=== PATIENT | male | born 1960 ===

== ENCOUNTER 2018-11-06 10:59 | Observation (INO) | payer OTHER ==
--- NOTE | 2018-11-06 11:26 | ED ---
Syncope/Near Syncope - HPI Summary HPI Summary: The patient is a 58 y/o M presenting to [facility] arriving by ambulance from correctional facility with a chief complaint of sudden onset syncope this morning. He reports that he was standing outside smoking a cigarette when he suddenly felt lightheaded, so he sat down on a nearby bench. He next woke up on the ground and was unaware that he fainted. At the facility, he was administered 500 ccs of Ns because he was hypotensive. Prior to the event, he denies any signs of headache, SOB, or CP. He is also not feeling SOB or CP currently, but he does have a mild headache. He notes that if he hasn't smoked in a few days, he sometimes gets dizzy while smoking. Hx of HTN, HLD, and borderline DM. HTN and HLD are controlled with medications. No hx of ID, CVA, or TIA. FHx of DM and HTN. No EtOH, former substance use with occasional marijuana use. - History Of Current Complaint Chief Complaint: EDSyncope Time Seen by Provider: 11/06/18 11:04 Hx Obtained From: Patient Onset/Duration: Sudden Onset, Lasting Minutes, Resolved Associated Head Trauma: No Aggravating Factor(s): Nothing Alleviating Factor(s): Spontaneous Resolution Associated Signs And Symptoms: Headache - mild, Lightheadedness, Other - NEGATIVE: CP, SOB - Allergies/Home Medications Allergies/Adverse Reactions: Allergies Allergy/AdvReac Type Severity Reaction Status Date / Time No Known Allergies Allergy Verified 11/06/18 11:06 Home Medications: Home Medications Aspirin EC TAB* [Ecotrin EC Low Dose 81 MG*] 81 mg PO DAILY 11/06/18 [History Confirmed 11/06/18] Atorvastatin* [Lipitor*] 10 mg PO DAILY 11/06/18 [History Confirmed 11/06/18] Hydrochlorothiazide TAB* [Hydrodiuril TAB*] 12.5 mg PO DAILY 11/06/18 [History Confirmed 11/06/18] Lisinopril TAB* [Prinivil TAB*] 20 mg PO DAILY 11/06/18 [History Confirmed 11/06] Tamsulosin CAP* [Flomax CAP*] 0.8 mg PO BEDTIME 11/06/18 [History Confirmed ] metFORMIN* [Glucophage 500 MG TAB *] 500 mg PO BID 11/06/18 [History Confirmed 11/06/18] PMH/Surg Hx/FS Hx/Imm Hx Endocrine/Hematology History: Reports: Hx Diabetes - borderline Cardiovascular History: Reports: Hx Hypercholesterolemia, Hx Hypertension - Surgical History Surgery Procedure, Year, and Place: none Infectious Disease History: No Infectious Disease History: Denies: Traveled Outside the [place] in Last 30 Days - Family History Known Family History: Positive: Hypertension, Diabetes - Social History Alcohol Use: None Hx Substance Use: Yes Substance Use Type: Reports: Marijuana Substance Use Comment - Amount & Last Used: states he last used 27 years ago but used marijuana occasionally Hx Tobacco Use: Yes Smoking Status (MU): Light Every Day Tobacco Smoker Type: Cigarettes Do You Chew or Dip Tobacco: No Have You Chewed or Dipped Tobacco in the LAST YEAR: No Have You Smoked in the Last Year: No Review of Systems Negative: Chest Pain Negative: Shortness Of Breath Neurological: Other - lightheaded Positive: Headache - mild, Syncope All Other Systems Reviewed And Are Negative: Yes Physical Exam - Summary Physical Exam Summary: VITAL SIGNS: Reviewed. GENERAL: Patient is a well-developed and nourished male who is lying comfortable in the stretcher. Patient is not in any acute respiratory distress. HEAD AND FACE: No signs of trauma. No ecchymosis, hematomas or skull depressions. No sinus tenderness. EYES: PERRLA, EOMI x 2, No injected conjunctiva, no nystagmus. No photophobia. EARS: Hearing grossly intact. Ear canals and tympanic membranes are within normal limits. MOUTH: Oropharynx within normal limits. NECK: Supple, trachea is midline, no adenopathy, no JVD, no carotid bruit, no c- spine tenderness, neck with full ROM. No meningeal signs, no Kernig's or brudzinskis signs. CHEST: Symmetric, no tenderness at palpation LUNGS: Clear to auscultation bilaterally. No wheezing or crackles. CVS: Regular rate and rhythm, S1 and S2 present, no murmurs or gallops appreciated. ABDOMEN: Soft, non-tender. No signs of distention. No rebound no guarding, and no masses palpated. Bowel sounds are normal. EXTREMITIES: FROM in all major joints, no edema, no cyanosis or clubbing. NEURO: Alert and oriented x 3. No acute neurological deficits. Speech is normal and follows commands. SKIN: Dry and warm. GCS: 15 Triage Information Reviewed: Yes Vital Signs On Initial Exam: Initial Vitals Temp Pulse Resp BP Pulse Ox 99.0 F 80 18 132/83 97 11/06/18 11:03 11/06/18 11:03 11/06/18 11:03 11/06/18 11:03 11/06/18 11:03 Vital Signs Reviewed: Yes - Libby Coma Scale Best Eye Response: 4 - Spontaneous Best Motor Response: 6 - Obeys Commands Best Verbal Response: 5 - Oriented Coma Scale Total: 15 Diagnostics - Vital Signs Vital Signs Temp Pulse Resp BP Pulse Ox 11/06/18 11:03 99.0 F 80 18 132/83 97 - Laboratory Result Diagrams: 11/06/18 11:51 11/06/18 11:48 Lab Statement: Any lab studies that have been ordered have been reviewed, and results considered in the medical decision making process. - Radiology CXR Radiology Interpretation Completed By: Radiologist Summary of Radiographic Findings: No evidence for acute intrathoracic disease. ED physician has reviewed this report. - CT Brain CT CT Interpretation Completed By: Radiologist Summary of CT Findings: 1. No evidence for acute intracranial abnormality. 2. Small area of decreased density adjacent to the right thalamus suggestive of an old lacunar infarct or prominent perivascular space. ED physician has reviewed this report. - EKG 1110 Cardiac Rate: NL - 78 BPM EKG Rhythm: Sinus Rhythm Summary of EKG Findings: T-wave inversions in V5, no ST elevations Re-Evaluation - Re-Evaluation First Eval Re-Evaluation Time: 14:10 Change: Unchanged Comment: I discussed findings and need for admission with the patient. Course/Dx Assessment/Plan: The patient is a 58 y/o M presenting to [facility] arriving by ambulance from correctional facility with a chief complaint of sudden onset syncope this morning. He reports that he was standing outside smoking a cigarette when he suddenly felt lightheaded, so he sat down on a nearby bench. He next woke up on the ground and was unaware that he fainted. At the facility, he was administered 500 ccs of Ns because he was hypotensive. Prior to the event , he denies any signs of headache, SOB, or CP. He is also not feeling SOB or CP currently, but he does have a mild headache. He notes that if he hasn't smoked in a few days, he sometimes gets dizzy while smoking. Hx of HTN, HLD, and borderline DM. HTN and HLD are controlled with medications. No hx of ID, CVA, or TIA. FHx of DM and HTN. No EtOH, former substance use with occasional marijuana use. Initially the ED the patient was placed on a interactive media marketing director. Blood work, EKG, chest x-ray, and head CT was ordered. Chest x-ray impression: No evidence for acute disease. Head CT impression: No evidence for acute intracranial abnormality. Small area of decreased density adjacent to the right , suggestive of an old lacunar infarct from in the vascular space. Blood work without any significant abnormality except for slight anemia, glucose of 136, and troponin of 0.00. Urinalysis is negative for UTI, and urine toxicology is negative. I discuss my physical exam, findings, and test results with Dr. Soliz from the hospitalist services, and he agrees to admit the patient to his services. Patient is hemodynamically stable alert and oriented x3. - Diagnoses Differential Diagnosis/HQI/PQRI: Positive: Cerebral Vascular Accident, Coronary Artery Disease, Dysrhythmia, Transient Ischemic Attack, Vasovagal Episode Provider Diagnoses: Syncope - Physician Notifications Discussed Care of Patient With: Yao Soliz - hospitalist Time Discussed With Above Provider: 01:35 Instructed by Provider To: Other - I spoke with Dr. Soliz who accepts the patient for admission for syncope. Discharge - Sign-Out/Discharge Documenting (check all that apply): Patient Departure - Patient is admitted for further workup by Dr. Soliz. Patient Received Moderate/Deep Sedation with Procedure: No - Discharge Plan Condition: Stable Disposition: ADMITTED TO [facility] - Billing Disposition and Condition Condition: STABLE Disposition: Admitted to [facility] - Attestation Statements Document Initiated by Marandaibe: Yes Documenting Scribe: Keslea Blood Provider For Whom Marandaibe is Documenting (Include Credential): Dr. Sandro Jimenez MD Scribe Attestation: Kelsea Rodríguez scribed for Dr. Sandro Jimenez MD on 11/06/18 at 2200. Scribe Documentation Reviewed: Yes Provider Attestation: The documentation as recorded by the Kelsea jefferson accurately reflects the service I personally performed and the decisions made by me, Dr. Sandro Jimenez MD Status of Scribe Document: Viewed
[2018-11-06 11:49] LABS: Urine Appearance Clear; Urine Bilirubin Negative (Negative); Urine Blood Negative (Negative); Urine Color Yellow; Urine Glucose Negative (Negative); Urine Ketones Negative (Negative); Urine Nitrite Negative (Negative); Urine Protein Negative (Negative); Urine Specific Gravity 1.013 (1.010-1.030); Urine Urobilinogen Negative (Negative)
[2018-11-06 12:10] LABS: Urine Benzodiazepine Screen None Detected (None Detect); Urine Opiates Screen None Detected (None Detect)
[2018-11-06 12:25] LABS: Hematocrit 39 % (42-52); Hemoglobin 12.4 g/dL (14.0-18.0); Mean Corpuscular HGB Conc 32 g/dL (31-36); Mean Corpuscular Hemoglobin 23 pg (27-31); Mean Corpuscular Volume 72 fL (80-94); Mean Platelet Volume 9.7 fL (7.4-10.4); Platelet Count 137 10^3/uL (150-450); Red Blood Count 5.39 10^6 /uL (4.18-5.48); Red Cell Distribution Width 18 % (10.5-15); White Blood Count 9.6 10^3/uL (3.5-10.8)
[2018-11-06 12:34] LABS: ALT 33 U/L (7-52); AST 23 U/L (13-39); Albumin 4.1 g/dL (3.2-5.2); Albumin/Globulin Ratio 1.4 (1-3); Alcohol < 10 mg/dL (<10); Alkaline Phosphatase 74 U/L (34-104); Anion Gap 5 mmol/L (2-11); BUN/Creatinine Ratio 17.4 (8-20); Blood Urea Nitrogen 19 mg/dL (6-24); CO2 Carbon Dioxide 30 mmol/L (22-32); Calcium 9.5 mg/dL (8.6-10.3); Chloride 105 mmol/L (101-111); Creatine Kinase 144 U/L (10-223); EGFR African American 83.5 (>60); Globulin 2.9 g/dL (2-4); Glucose 136 mg/dL (70-100); Magnesium 1.9 mg/dL (1.9-2.7); Potassium 4.1 mmol/L (3.5-5.0); Sodium 140 mmol/L (135-145)
[2018-11-06 12:48] LABS: TSH (Thyroid Stimulating Horm) 1.83 mcIU/mL (0.34-5.60)
[2018-11-06 13:48] LABS: ABS Eosinophils 0.1 10^3/ul (0-0.6); ABS Lymphocytes 0.5 10^3/ul (1.0-4.8); ABS Monocytes 0.4 10^3/ul (0-0.8); ABS Neutrophils 8.6 10^3/ul (1.5-7.7); Eosinophil % 0.9 %
[2018-11-06 13:49] LABS: Microcytosis 2+
[2018-11-06] MEDS ORDERED: Acetaminophen TAB* 325 MG PO PRN (14:44)
[2018-11-06] MEDS ORDERED: Al Hydrox/Mg Hydrox/Simet LIQ* 30 ML UDC PO PRN (14:44)
[2018-11-06] MEDS ORDERED: Dextrose 50% Syringe 50 ML* 25 GM/50 ML SYRINGE IV PUSH PRN (14:48)
[2018-11-06] MEDS: Insulin LISPRO* 1 UNITS UNIT SUBCUT SCH (17:11)
--- NOTE | 2018-11-06 17:45 | ECHO ---
*[facility]* [place] [address] Fax #: [phone] Transthoracic Echocardiogram Patient: Nick, Height: 72 in / [id number] 182.9 cm : 1960 Weight: 174.6 lb Study Date: 11/06/2018 / 79.4 kg Age: 58 BP: 129 / 72 Gender: M BMI/BSA: 23.7 HR: 66 bpm kg/m^2 / 2.01 m^2 *Laundry Or Dry Cleaners Counter Clerk: * Stefany Mitchell [facility] *Referring Physician: * Nurys Gonzalez *Reading Physician: * Arley Lopez MD Indications: Syncope. History: Risk factors: Current tobacco use. Former substance abuse. Hypertension. Hyperlipidemia. Conclusions Summary: 1. Left ventricle: There is mild concentric hypertrophy. Systolic function is at the lower limits of normal. The estimated ejection fraction is 50-55%. 2. Left atrium: The atrium is mildly dilated. 3. Mitral valve: There is trace regurgitation. 4. Aortic valve: There is trace regurgitation. 5. Aortic root: The aortic root is upper normal in size. 6. No previous echocardiogram available. Study data: Transthoracic echocardiogram. Procedure: Transthoracic echocardiography was performed. Image quality was good. Complete 2D, spectral Doppler, and color flow Doppler. Location: Emergency department. Patient status: Inpatient. Patient room number: ED-18. Findings Left ventricle: The cavity size is normal. There is mild concentric hypertrophy. Systolic function is at the lower limits of normal. The estimated ejection fraction is 50-55%. Wall motion is normal; there are no regional wall motion abnormalities. Doppler parameters are consistent with abnormal left ventricular relaxation (grade 1 diastolic dysfunction). Right ventricle: The cavity size is normal. Systolic function is normal. Left atrium: The atrium is mildly dilated. Right atrium: The atrium is normal in size. Mitral valve: The leaflets are mildly thickened. There is no evidence of stenosis. There is trace regurgitation. Aortic valve: The valve is trileaflet. The leaflets are mildly thickened. There is no evidence of stenosis. There is trace regurgitation. Tricuspid valve: The leaflets are normal thickness. There is no evidence of stenosis. There is physiologic regurgitation. Pulmonic valve: The leaflets are normal thickness. There is no evidence of stenosis. There is trace regurgitation. Aorta: Aortic root: The aortic root is upper normal in size. Ascending aorta: The ascending aorta is upper normal in size. Aortic arch: The aortic arch is appears normal. Pericardium: There is no pericardial effusion. Pulmonary arteries: The main pulmonary artery is normal-sized. Systolic pressure can not be accurately estimated. Systemic veins: Inferior vena cava: The vessel is normal in size. The respirophasic diameter changes are in the normal range (>= 50%). Measurements Left ventricle Value Ref Right atrium continued Value Ref IGOR, LAX 5.3 cm 4.2 - 5.8 SI dim, ES, A4C 4.6 cm 3.4 - 5.3 ESD, LAX 3.8 cm 2.5 - 4.0 Estimated RAP 3 mm Hg --------- FS, LAX 29 % 43 PW, ED, LAX (H) 1.2 cm 0.6 - 1.0 Aortic valve Value Ref FS 28 % 43 Emmie diam, ED 2.1 cm --------- PW, ED (H) 1.2 cm 0.6 - 1.0 Peak v, S 1.26 m/sec --------- E', lat emmie, TDI (L) 4.1 cm/sec >=10.0 VTI, S 22.6 cm -- ------- E/e', lat emmie, 15 Mean grad, S 4.0 mm Hg ----- ---- TDI Peak grad, S 6.0 mm Hg --------- E', med emmie, TDI (L) 5.0 cm/sec >=7.0 LVOT/AV, VTI ratio 0.8 -- ------- E/e', med emmie, 13 TDI Mitral valve Value Ref E', avg, TDI 4.6 cm/sec Peak E 0.63 m/sec ----- ---- E/e', avg, TDI 14 <=14 Peak A 0.66 m/sec -- ------- Decel time 155 ms --------- LVOT Value Ref Peak E/A ratio 1 --------- Peak destin, S 0.94 m/sec VTI, S 18.0 cm Pulmonic valve Value Ref Mean grad, S 2 mm Hg Peak v, S 0.81 m/sec --------- Peak grad, S 3.0 mm Hg --------- Ventricular septum Value Ref IVS, ED (H) 1.1 cm 0.6 - 1.0 Aortic root Value Ref Root diam 3.7 cm <4.1 Right ventricle Value Ref IGOR, LAX 3.7 cm Ascending aorta Value Ref IGOR minor ax, (H) 3.9 cm 1.9 - 3.5 AAo AP diam, S 3.6 cm --------- A4C mid Aortic arch Value Ref Left atrium Value Ref Arch diam 2.4 cm --------- AP dim, ES 3.90 cm 3.00 - 4.00 Decending aorta Value Ref ML dim, A4C 4.1 cm Fred peak destin 0.91 m/sec --------- SI dim, A4C 4.5 cm Vol/bsa, ES, 1-p 27 ml/m^2 12 - 37 Inferior vena cava Value Ref A4C Diam 1.8 cm --------- Vol/bsa, ES, A/L (H) 37 ml/m^2 16 - 34 Right atrium Value Ref SI dim, ES 4.6 cm 3.4 - 5.3 ML dim, ES, A4C (H) 4.7 cm 2.6 - 4.4 Legend: (L) and (H) marilin values outside specified reference range. Prepared and electronically signed by Arley Lopez MD 11/06/2018 17:45
--- NOTE | 2018-11-06 19:16 | HP ---
AMENDED REPORT NOW INCLUDES DESIGNATED COSIGNER CC: [facility] * HISTORY AND PHYSICAL: DATE OF ADMISSION: 11/06/18 PROVIDER: Nursy Gonzalez NP ATTENDING PHYSICIAN WHILE IN THE HOSPITAL: Dr. Yao Soliz * (dictated by Nurys Gonzalez NP). PRIMARY CARE PROVIDER: [facility]. CHIEF COMPLAINT: Syncope. HISTORY OF PRESENT ILLNESS: Mr. Romero is a 58-year-old male with a past medical history significant for borderline diabetes, hypertension, hyperlipidemia, who was brought to the emergency room by EMS after a syncopal episode at the [facility]. The patient reports that he was smoking a cigarette, which he reports he has not smoked cigarettes in several months. He reports that he felt lightheaded and next thing he remembered was looking up at the [place]. The patient reports that he did hit the back of his head. He denies any palpitations or chest pain prior to his syncopal episode. This was witnessed by a school services officer, who reports that his loss of consciousness was 1 to 2 seconds. After the episode, the patient denied any dizziness or chest pain. The school services officer reports that the patient immediately tried to sit up within seconds of the episode. The patient does currently complain of headache at this time. Denies any fevers or unintended weight loss. Denies any chest pain or edema, cough, hemoptysis or shortness of breath. No nausea, vomiting, diarrhea, or abdominal pain. Denies any gross hematuria, dysuria, focal weakness, or sensory loss. Denies any visual complaints, dysphagia, arthralgias, myalgias, rashes, lesions, or open sores. He did report lightheadedness prior to his syncopal episode. Due to his syncope , we were asked to see and evaluate the patient for admission. PAST MEDICAL HISTORY: Borderline diabetes type 2, hypertension, hyperlipidemia. PAST SURGICAL HISTORY: 1. Lumbar spine surgery. 2. Tonsillectomy. 3. Hernia repair. HOME MEDICATIONS: Include: 1. Tamsulosin 0.8 mg p.o. at bedtime. 2. Lisinopril 20 mg p.o. daily. 3. Hydrochlorothiazide 12.5 mg p.o. daily. 4. Atorvastatin 10 mg p.o. daily. 5. Metformin 500 mg p.o. b.i.d. 6. Enteric-coated aspirin 81 mg p.o. daily. ALLERGIES: No known drug allergies. FAMILY HISTORY: Father with a history of hypertension. Father with diabetes. Father with pancreatic cancer, has since . SOCIAL HISTORY: The patient reports that he smokes quarter pack a day on and off for the past 15 years, but reports he has not smoked in the past 4 to 5 months until today. Denies any alcohol use x90 days. He does report occasional marijuana use, but not in the past 90 days. He is . Surrogate decision maker in the event he is unable to make his own decisions would to be call his correctional facility at [place]. He is a full code. REVIEW OF SYSTEMS: An 11-point review of systems was completed. All pertinent positives were mentioned in the HPI. Otherwise were negative. PHYSICAL EXAMINATION GENERAL: At this time, Mr. Romero is alert and oriented, resting on the stretcher in the emergency room. He is in no acute distress. VITAL SIGNS: Blood pressure 130/80, heart rate is 79, respirations 16, O2 saturation was 98%, temperature was 98.5. HEENT: Head is atraumatic, normocephalic. He has no scalp hematoma. Eyes: EOMs are intact. Sclerae anicteric and not pale. Pupils are 2 mm, equal and reactive to light. NECK: Supple. No C-spine tenderness with palpation. LUNGS: Clear to auscultation bilaterally. No wheezes, rales, or rhonchi. CARDIAC: S1, S2. Regular rate and rhythm. No murmurs, rubs, or gallops. ABDOMEN: Soft and nontender. Bowel sounds are present x4. MUSCULOSKELETAL: He is able to move all 4 extremities with 5/5 strength. Skin is intact. NEUROLOGIC: The patient is alert and oriented x3. Speech is clear. Thought process is intact. Cranial nerves II through XII are grossly intact. Sensation is intact to all 4 extremities. SKIN: Intact. DIAGNOSTIC STUDIES/LAB DATA: WBCs are 9.6, RBCs 5.39, hemoglobin 12.4, hematocrit 39, platelet count is 137. APTT was 34.4. Sodium 140, potassium 4.1 , chloride 105, carbon dioxide is 30, anion gap 5, BUN 19, creatinine 1.09, glucose is 136, lactic acid 1.3, calcium 9.5, magnesium 1.9. Total bili was 0.40, ASTs were 23, ALTs were 33, alkaline phosphatase was 74. Total creatine kinase 144. Troponin was 0.00, second troponin is currently pending. BNP was 24. TSH was 1.83. Urine was within normal limits. Toxicology: Alcohol was less than 10 and urine tox was within normal limits. No drugs were detected. He had a CT of the brain, radiologist's impression: No evidence of acute intracranial abnormality. Small area of decreased density adjacent to the right thalamus suggestive of old lacunar infarct or prominent perivascular space. There is no evidence of hemorrhage. He had a chest x-ray, radiologist's impression: No evidence of acute intrathoracic disease. He had an electrocardiogram, which showed sinus rhythm at a rate of 78. He does have inverted T-wave in V5. There is no old EKG to compare. ASSESSMENT AND PLAN: Mr. Romero is a 58-year-old male with a past medical history significant for type 2 diabetes, hypertension, hyperlipidemia, who presented to the emergency room via EMS after a syncopal episode at [facility]. He will be admitted under observation for: 1. Syncope. The patient had a syncopal episode after smoking a cigarette. I suspect this could be related to vasovagal syncope. He will be monitored on telemetry to rule out underlying arrhythmia. He will have a transthoracic echocardiogram to rule out any underlying cardiac structural abnormality. We will do neuro checks q.4 hours. We will get orthostatic vital signs as well. 2. Hypertension. He will continue on hydrochlorothiazide and lisinopril. 3. Hyperlipidemia. He will continue on Lipitor. 4. Diabetes. I will hold his metformin and place him on lispro sliding scale. 5. FEN: He can have a heart-healthy, caffeine okay diet. 6. Code status: He is a full code. 7. DVT prophylaxis: I will place him on SCDs as the patient had a recent syncopal episode with head injury. TIME SPENT: Time spent on this admission was approximately 60 minutes, greater than half that time was spent at the bedside reviewing events leading thus far to his hospitalization, performing physical exam, and reviewing my plan of care. I have discussed this with my attending, Dr. Yao Soliz; he is in agreement with my plan. NURYS GONZALEZ, DISPUTE SPECIALIST [id number]/[facility] #: [id number] [facility]
[2018-11-06] MEDS ORDERED: Tamsulosin CAP* 0.4 MG PO SCH (21:00)
[2018-11-07] MEDS: Insulin LISPRO* 1 UNITS UNIT SUBCUT SCH (07:26)
[2018-11-07 07:44] LABS: % Iron Saturation 21 % (15-55); Iron 59 ug/dL (50-212); Total Iron Binding Capacity 287 mcg/dL (250-450); Transferrin 205 mg/dL (203-362)
[2018-11-07 08:04] LABS: Ferritin 119.8 ng/mL (24-336)
[2018-11-07 08:42] VITALS: BP 143/83
[2018-11-07] MEDS ORDERED: Aspirin EC TAB* 81 MG TAB.EC PO SCH (09:00)
[2018-11-07] MEDS ORDERED: Hydrochlorothiazide TAB* 25 MG PO SCH (09:00)
[2018-11-07] MEDS ORDERED: Lisinopril TAB* 10 MG PO SCH (09:00)
[2018-11-07] MEDS ORDERED: Atorvastatin* 10 MG TAB PO SCH (09:00)
[2018-11-07] MEDS ORDERED: metFORMIN* 500 MG TAB PO SCH (10:00)
--- NOTE | 2018-11-07 23:39 | DS ---
CC: Dr. Bhavin Wheat; [facility]* DISCHARGE SUMMARY: DATE OF ADMISSION: 11/06/18 DATE OF DISCHARGE: 11/07/18 PRIMARY CARE PROVIDER: Dr. Bhavin Wheat at [facility]. ATTENDING PHYSICIAN: Dr. Yao Soliz* (dictated by Bernarda Salgado NP). PRIMARY DIAGNOSIS: Vasovagal syncope. SECONDARY DIAGNOSES: 1. Hypertension. 2. Hyperlipidemia. 3. Prediabetes. STUDIES WHILE IN THE HOSPITAL: 1. Brain CT on 11/06/18 reads as no evidence for acute intracranial abnormality. Small area of decreased density adjacent to the right thalamus suggestive of an old lacunar infarct or prominent perivascular space. 2. Chest x-ray on 11/06/18 reads as no evidence for acute intrathoracic disease. 3. EKG on 11/06/18 shows normal sinus rhythm at a rate of 78, QTc 424. No ischemic changes. 4. Transthoracic echocardiogram on 11/07/18 reads as there is mild concentric left ventricular hypertrophy. Systolic function is at the lower limits of normal. The estimated ejection fraction is 50% to 55%. The left atrium is mildly dilated. There is trace mitral regurgitation. There is trace aortic regurgitation. The aortic root is upper normal in size. No previous echocardiogram to compare. HISTORY OF PRESENT ILLNESS AND HOSPITAL COURSE: Mr. Romero is a 58-year-old male with past medical history of prediabetes, hypertension, and hyperlipidemia , who presented to the emergency room on 11/06/18 with complaints of syncope. Please see the history and physical by Nurys Gonzalez NP, for a complete summary of the events leading up to this hospitalization. In short, the patient is an inmate at [facility]. Reportedly, he has not smoked cigarettes for several months, though did smoke a cigarette yesterday. After smoking the cigarette, he felt lightheaded and then synopsized. The event was witnessed by a activities officer who notes that the patient lost consciousness for 1 to 2 seconds. The patient recovered quickly but because of the concern for syncope, he was brought to the emergency room. In the emergency room, he was noted to have mild microcytic hypochromic anemia. Lab work was otherwise unremarkable. He did have a negative troponin and a normal EKG. No acute findings on chest x-ray or brain CT. Vital signs were stable. The patient was admitted via the hospitalist service for syncope workup. Orthostatic vital signs were done and the patient was not noted to be orthostatic. He was monitored on telemetry overnight. There has been no evidence of arrhythmias. He had an echocardiogram as noted above, which was grossly normal. He has not had any further episodes of dizziness or lightheadedness. On exam today, he reports feeling well and is anxious to return back to [facility]. On exam, he has no focal neurological deficits. His heart has a regular rate and rhythm without murmurs, rubs, or gallops. Lungs are clear to auscultation without rhonchi, wheezes, or rales. At this point, it appears that the patient's syncope was vasovagal secondary to cigarette smoking. The patient has been encouraged to not smoke. I have advised the patient that because of this episode, he may be more prone to vasovagal syncope , and if he is ever feeling dizzy or lightheaded, he should sit and not resume activity until his symptoms have resolved. Mr. Romero is stable for discharge today. Vital signs are as follows: Temp 98.8, heart rate 84, respiratory rate 18, oxygen saturation 98% on room air, blood pressure 143/83. DISCHARGE MEDICATIONS: Continued medications: 1. Aspirin 81 mg p.o. daily. 2. Atorvastatin 10 mg p.o. daily. 3. Hydrochlorothiazide 12.5 mg p.o. daily. 4. Lisinopril 20 mg p.o. daily. 5. Metformin 500 mg p.o. b.i.d. 6. Tamsulosin 0.8 mg p.o. at bedtime. DISCHARGE PLAN: Mr. Romero will be discharged back to [facility]. Activity will be as tolerated. Diet will be diabetic. Medications are as noted above. The patient can resume his usual medications and I have not made any changes. As noted above, I did speak at length with the patient about smoking cessation and the need to sit or lie down if he experiences any further dizziness or lightheadedness. I did speak with nurse, Kody, at [facility] to provide her with results from this hospitalization and further treatment plan for the patient. The patient will need to follow up with his provider at [facility] within the next 4 to 7 days. He should return to the emergency room or nearest hospital for any worsening of symptoms, shortness of breath, lightheadedness, dizziness, chest discomfort, high fever, chills, night sweats, loss of consciousness, or any other worrisome signs or symptoms. DISCHARGE CONDITION: Stable. DISCHARGE DISPOSITION: Law enforcement, [facility]. This is a summarized report of a complex medical history and hospital stay. For further details, please see the entire medical record. TIME SPENT: Approximately 45 minutes was spent on this discharge. BERNARDA SALGADO, [employer] [id number]/CPS #: [id number] KIRK
== END 2018-11-07 11:22 ==
LOC: ED 10:59 → EEVIPCON 14:44 → MEDTELE 14:44
PROVIDERS: ADMIT Internal Medicine; ATTEND Internal Medicine
DX: R55 Syncope and collapse (principal); I10 Essential (primary) hypertension; E78.5 Hyperlipidemia, unspecified; R73.03 Prediabetes; Z79.82 Long term (current) use of aspirin; R42 Dizziness and giddiness
CPT/HCPCS: 36415; 70450; 71046; 80053; 80307; 80320; 81003; 82550; 82728; 83540; 83550; 83605; 83735; 83880; 84443; 84484; 85025; 85730; 93005; 93306; 99284; A9270-GY; G0378; G0480